=== PATIENT | female | born 1995 | race Caucasian/White ===

== ENCOUNTER 2017-07-22 06:23 | Emergency (ER) | payer BC ==
[2017-07-22 06:30] VITALS: BP 119/84
[2017-07-22] MEDS ORDERED: IBUPROFEN 800 MG TAB PO ONE (07:00)
--- NOTE | 2017-07-22 08:01 | REP ---
Right ankle series: Four views. History: Trauma. Findings: Four views right ankle demonstrate an intact ankle mortise. No fracture or subluxation is seen. Bones, joints and soft tissues are unremarkable. Impression: Negative right ankle series. Signed by Kody Khalil MD 07/22/2017 09:53 A
[2017-07-22] MEDS ORDERED: MOBI4TAB PO (08:13)
== END 2017-07-22 08:21 | disposition home or self-care (01) ==
LOC: M ED 06:23
DX: S93.401A Sprain of unspecified ligament of right ankle, initial encounter (principal); W01.198A Fall on same level from slipping, tripping and stumbling with subsequent striking against other object, initial encounter; Y92.099 Unspecified place in other non-institutional residence as the place of occurrence of the external cause; Y93.89 Activity, other specified; Y99.9 Unspecified external cause status